=== PATIENT | female | born 1950 | race Two or more races ===

== ENCOUNTER 2024-11-11 20:07 | Inpatient (IN) | payer MEDICARE ==
[2024-11-11] MEDS ORDERED: Sodium Chloride 0.9% 2.5 ML Syringe FLUSH PRN (20:15)
[2024-11-11] MEDS ORDERED: Sodium Chloride 0.9% 10 ML Syringe FLUSH PRN (20:15)
[2024-11-11 20:28] LABS: BASOPHILS ABSOLUTE AUTO 0.05 K/uL (0.00-0.20); BASOPHILS PERCENT AUTO 0.4 % (0.0-1.0); EOSINOPHILS ABSOLUTE AUTO 0.02 K/uL (0.00-0.45); EOSINOPHILS PERCENT AUTO 0.2 % (0.0-6.0); IMMATURE GRAN ABSOLUTE AUTO 0.02 K/uL (0.00-0.05); IMMATURE GRAN PERCENT AUTO 0.2 % (0.0-0.4); LYMPHOCYTES ABSOLUTE AUTO 1.65 K/uL (1.00-4.80); LYMPHOCYTES PERCENT AUTO 13.5 % (24.0-44.0); MEAN PLATELET VOLUME 10.0 fL (9.4-12.3); MONOCYTES ABSOLUTE AUTO 0.99 K/uL (0.00-0.80); MONOCYTES PERCENT AUTO 8.1 % (0.0-8.0); NEUTROPHILS ABSOLUTE AUTO 9.53 K/uL (1.80-7.70); NEUTROPHILS PERCENT AUTO 77.6 % (41.0-71.0); NRBC ABSOLUTE 0.00 K/uL (0.00-0.02); NRBC PERCENT 0.0 /100WBC (0.0-0.2); PLATELET COUNT,PLT 142 K/uL (150-400); RED BLOOD CELL COUNT 4.57 M/uL (4.10-5.30); WHITE BLOOD CELL COUNT,WBC 12.26 K/uL (3.9-11.3)
[2024-11-11] MEDS: cefTRIAXone 1 GM in Water For Injection, Sterile 10 ML IVPUSH ONE (20:37)
[2024-11-11] MEDS: VANCOmycin 1.75 GM/350 ML 1.75 GM in Premix Bag 1 BAG IV ONE (20:37)
[2024-11-11 20:58] LABS: INR 1.04 (0.86-1.11); LACTIC ACID 1.4 mmol/L (0.4-2.0); PTT,PARTIAL THROMBOPLSTIN TIME 25.6 SEC (23.9-30.7)
[2024-11-11 21:02] LABS: APPEARANCE,URINE CLEAR; GLUCOSE,URINE NEGATIVE (NEGATIVE); OCCULT BLOOD,URINE SMALL (NEGATIVE)
[2024-11-11 21:04] LABS: A/G RATIO 0.9 (0.9-1.6); ALANINE AMINOTRANSFERASE,ALT 24 IU/L (14-63); ASPARTATE AMNIOTRANSFERASE,AST 31 IU/L (15-37); BILIRUBIN TOTAL 0.7 mg/dL (0.2-1.0); BLOOD UREA NITROGEN,BUN 19 mg/dL (7.0-18.0); CARBON DIOXIDE,CO2 30.0 mmol/L (21.0-32.0); CHLORIDE,CL 98 mmol/L (98-107); CREATININE 1.2 mg/dL (0.6-1.0); GLUCOSE RANDOM 140 mg/dL (74-106); POTASSIUM,K 5.0 mmol/L (3.5-5.1); PROTEIN TOTAL,TP 7.4 g/dL (6.4-8.2); SODIUM,NA 136 mmol/L (136-145)
[2024-11-11 21:10] LABS: ESTIMATED GFR 47 mL/min (>60)
[2024-11-11 21:11] LABS: EPITHELIAL CELLS,URINE OCCASIONAL (NONE-FEW)
[2024-11-12 05:44] LABS: BASOPHILS ABSOLUTE AUTO 0.03 K/uL (0.00-0.20); BASOPHILS PERCENT AUTO 0.3 % (0.0-1.0); EOSINOPHILS ABSOLUTE AUTO 0.02 K/uL (0.00-0.45); EOSINOPHILS PERCENT AUTO 0.2 % (0.0-6.0); IMMATURE GRAN ABSOLUTE AUTO 0.03 K/uL (0.00-0.05); IMMATURE GRAN PERCENT AUTO 0.3 % (0.0-0.4); LYMPHOCYTES ABSOLUTE AUTO 1.94 K/uL (1.00-4.80); LYMPHOCYTES PERCENT AUTO 18.5 % (24.0-44.0); MEAN PLATELET VOLUME 10.2 fL (9.4-12.3); MONOCYTES ABSOLUTE AUTO 0.91 K/uL (0.00-0.80); MONOCYTES PERCENT AUTO 8.7 % (0.0-8.0); NEUTROPHILS ABSOLUTE AUTO 7.54 K/uL (1.80-7.70); NEUTROPHILS PERCENT AUTO 72.0 % (41.0-71.0); NRBC ABSOLUTE 0.00 K/uL (0.00-0.02); NRBC PERCENT 0.0 /100WBC (0.0-0.2); PLATELET COUNT,PLT 124 K/uL (150-400); RED BLOOD CELL COUNT 4.41 M/uL (4.10-5.30); WHITE BLOOD CELL COUNT,WBC 10.47 K/uL (3.9-11.3)
[2024-11-12 06:09] LABS: BLOOD UREA NITROGEN,BUN 17.0 mg/dL (7.0-18.0); CARBON DIOXIDE,CO2 28.0 mmol/L (21.0-32.0); CHLORIDE,CL 105.0 mmol/L (98-107); CREATININE 1.0 mg/dL (0.6-1.0); EST CRCL DRUG DOSING (CG) 39.59 mL/min; GLUCOSE RANDOM 141.0 mg/dL (74-106); POTASSIUM,K 4.9 mmol/L (3.5-5.1); SODIUM,NA 140.0 mmol/L (136-145)
[2024-11-12 06:15] LABS: ESTIMATED GFR 58.0 mL/min (>60)
[2024-11-12] MEDS ORDERED: 50% Dextrose in Water 50 ML Syringe IVPUSH PRN (06:51)
[2024-11-12] MEDS: Insulin Glargine,Human Rec. Analog 100 Units/ML 3 ML Pen SUBCUT SCH (08:36)
[2024-11-12] MEDS ORDERED: Sodium Chloride 0.9% 10 ML Syringe FLUSH PRN (13:39)
[2024-11-12] MEDS ORDERED: Sodium Chloride 0.9% 2.5 ML Syringe FLUSH PRN (13:39)
[2024-11-12] MEDS: Ondansetron 4 MG/2 ML SDV IVPUSH PRN (17:05)
[2024-11-12] MEDS: cefTRIAXone 1 GM in Water For Injection, Sterile 10 ML IVPUSH SCH (21:06)
[2024-11-13 05:07] LABS: BORDETELLA PARAPERT IS1001 Not Detected (Not Detected)
[2024-11-13 06:10] LABS: BASOPHILS ABSOLUTE AUTO 0.03 K/uL (0.00-0.20); BASOPHILS PERCENT AUTO 0.3 % (0.0-1.0); EOSINOPHILS ABSOLUTE AUTO 0.05 K/uL (0.00-0.45); EOSINOPHILS PERCENT AUTO 0.5 % (0.0-6.0); IMMATURE GRAN ABSOLUTE AUTO 0.03 K/uL (0.00-0.05); IMMATURE GRAN PERCENT AUTO 0.3 % (0.0-0.4); LYMPHOCYTES ABSOLUTE AUTO 2.10 K/uL (1.00-4.80); LYMPHOCYTES PERCENT AUTO 23.1 % (24.0-44.0); MEAN PLATELET VOLUME 10.0 fL (9.4-12.3); MONOCYTES ABSOLUTE AUTO 1.08 K/uL (0.00-0.80); MONOCYTES PERCENT AUTO 11.9 % (0.0-8.0); NEUTROPHILS ABSOLUTE AUTO 5.82 K/uL (1.80-7.70); NEUTROPHILS PERCENT AUTO 63.9 % (41.0-71.0); NRBC ABSOLUTE 0.00 K/uL (0.00-0.02); NRBC PERCENT 0.0 /100WBC (0.0-0.2); PLATELET COUNT,PLT 123 K/uL (150-400); RED BLOOD CELL COUNT 3.92 M/uL (4.10-5.30); WHITE BLOOD CELL COUNT,WBC 9.11 K/uL (3.9-11.3)
[2024-11-13 06:28] LABS: BLOOD UREA NITROGEN,BUN 17.0 mg/dL (7.0-18.0); CARBON DIOXIDE,CO2 30.7 mmol/L (21.0-32.0); CHLORIDE,CL 104.0 mmol/L (98-107); CREATININE 1.0 mg/dL (0.6-1.0); EST CRCL DRUG DOSING (CG) 39.59 mL/min; GLUCOSE RANDOM 91.0 mg/dL (74-106); POTASSIUM,K 4.5 mmol/L (3.5-5.1); SODIUM,NA 140.0 mmol/L (136-145)
[2024-11-13 06:38] LABS: ESTIMATED GFR 58.0 mL/min (>60)
[2024-11-14 08:33] LABS: BASOPHILS ABSOLUTE AUTO 0.04 K/uL (0.00-0.20); BASOPHILS PERCENT AUTO 0.5 % (0.0-1.0); EOSINOPHILS ABSOLUTE AUTO 0.12 K/uL (0.00-0.45); EOSINOPHILS PERCENT AUTO 1.5 % (0.0-6.0); IMMATURE GRAN ABSOLUTE AUTO 0.02 K/uL (0.00-0.05); IMMATURE GRAN PERCENT AUTO 0.3 % (0.0-0.4); LYMPHOCYTES ABSOLUTE AUTO 2.52 K/uL (1.00-4.80); LYMPHOCYTES PERCENT AUTO 31.8 % (24.0-44.0); MEAN PLATELET VOLUME 9.9 fL (9.4-12.3); MONOCYTES ABSOLUTE AUTO 0.91 K/uL (0.00-0.80); MONOCYTES PERCENT AUTO 11.5 % (0.0-8.0); NEUTROPHILS ABSOLUTE AUTO 4.31 K/uL (1.80-7.70); NEUTROPHILS PERCENT AUTO 54.4 % (41.0-71.0); NRBC ABSOLUTE 0.00 K/uL (0.00-0.02); NRBC PERCENT 0.0 /100WBC (0.0-0.2); PLATELET COUNT,PLT 112 K/uL (150-400); RED BLOOD CELL COUNT 3.93 M/uL (4.10-5.30); WHITE BLOOD CELL COUNT,WBC 7.92 K/uL (3.9-11.3)
[2024-11-14 08:55] LABS: BLOOD UREA NITROGEN,BUN 14.0 mg/dL (7.0-18.0); CARBON DIOXIDE,CO2 33.7 mmol/L (21.0-32.0); CHLORIDE,CL 103.0 mmol/L (98-107); CREATININE 1.0 mg/dL (0.6-1.0); EST CRCL DRUG DOSING (CG) 39.59 mL/min; GLUCOSE RANDOM 146.0 mg/dL (74-106); POTASSIUM,K 4.6 mmol/L (3.5-5.1); SODIUM,NA 142.0 mmol/L (136-145)
[2024-11-14 09:02] LABS: ESTIMATED GFR 58.0 mL/min (>60)
[2024-11-15] MEDS: Heparin Sodium 5,000 Units/ML Vial SUBCUT SCH (14:35)
[2024-11-16 05:58] LABS: MEAN PLATELET VOLUME 10.0 fL (9.4-12.3); NRBC ABSOLUTE 0.00 K/uL (0.00-0.02); NRBC PERCENT 0.0 /100WBC (0.0-0.2); PLATELET COUNT,PLT 148 K/uL (150-400); RED BLOOD CELL COUNT 3.95 M/uL (4.10-5.30); WHITE BLOOD CELL COUNT,WBC 7.64 K/uL (3.9-11.3)
[2024-11-16 06:22] LABS: BLOOD UREA NITROGEN,BUN 12.0 mg/dL (7.0-18.0); CARBON DIOXIDE,CO2 38.9 mmol/L (21.0-32.0); CHLORIDE,CL 101.0 mmol/L (98-107); CREATININE 0.9 mg/dL (0.6-1.0); EST CRCL DRUG DOSING (CG) 43.99 mL/min; GLUCOSE RANDOM 109.0 mg/dL (74-106); POTASSIUM,K 4.6 mmol/L (3.5-5.1); SODIUM,NA 143.0 mmol/L (136-145)
[2024-11-16 06:41] LABS: ESTIMATED GFR 66.0 mL/min (>60)
[2024-11-16 06:48] LABS: EOSINOPHILS ABSOLUTE MAN 0.23 K/uL (0.00-0.45); EOSINOPHILS PERCENT MAN 3 % (0-6); LYMPHOCYTES ABSOLUTE MAN 2.37 K/uL (1.00-4.80); LYMPHOCYTES PERCENT MAN 31 % (24-44); MONOCYTES ABSOLUTE MAN 0.61 K/uL (0.00-0.80); MONOCYTES PERCENT MAN 8 % (0-8); SEG NEUTROPHILS ABSOLUTE MAN 4.43 K/uL (1.80-7.70); SEG NEUTROPHILS PERCENT MAN 58 % (41-71)
[2024-11-16] MEDS: Insulin Glargine,Human Rec. Analog 100 Units/ML 3 ML Pen SUBCUT SCH (09:19)
[2024-11-17 08:26] LABS: BASOPHILS ABSOLUTE AUTO 0.05 K/uL (0.00-0.20); BASOPHILS PERCENT AUTO 0.6 % (0.0-1.0); EOSINOPHILS ABSOLUTE AUTO 0.22 K/uL (0.00-0.45); EOSINOPHILS PERCENT AUTO 2.8 % (0.0-6.0); IMMATURE GRAN ABSOLUTE AUTO 0.03 K/uL (0.00-0.05); IMMATURE GRAN PERCENT AUTO 0.4 % (0.0-0.4); LYMPHOCYTES ABSOLUTE AUTO 2.46 K/uL (1.00-4.80); LYMPHOCYTES PERCENT AUTO 31.7 % (24.0-44.0); MEAN PLATELET VOLUME 9.6 fL (9.4-12.3); MONOCYTES ABSOLUTE AUTO 0.51 K/uL (0.00-0.80); MONOCYTES PERCENT AUTO 6.6 % (0.0-8.0); NEUTROPHILS ABSOLUTE AUTO 4.48 K/uL (1.80-7.70); NEUTROPHILS PERCENT AUTO 57.9 % (41.0-71.0); NRBC ABSOLUTE 0.00 K/uL (0.00-0.02); NRBC PERCENT 0.0 /100WBC (0.0-0.2); PLATELET COUNT,PLT 168 K/uL (150-400); RED BLOOD CELL COUNT 4.33 M/uL (4.10-5.30); WHITE BLOOD CELL COUNT,WBC 7.75 K/uL (3.9-11.3)
[2024-11-17 08:44] LABS: BLOOD UREA NITROGEN,BUN 15.0 mg/dL (7.0-18.0); CARBON DIOXIDE,CO2 36.2 mmol/L (21.0-32.0); CHLORIDE,CL 100.0 mmol/L (98-107); CREATININE 0.9 mg/dL (0.6-1.0); EST CRCL DRUG DOSING (CG) 43.99 mL/min; GLUCOSE RANDOM 141.0 mg/dL (74-106); POTASSIUM,K 4.7 mmol/L (3.5-5.1); SODIUM,NA 141.0 mmol/L (136-145)
[2024-11-17 08:47] LABS: ESTIMATED GFR 66.0 mL/min (>60)
== END 2024-11-17 13:38 | disposition home or self-care (01) | DRG 871 ==
LOC: MW.ED 20:07 → MW.MS 21:32 → OBSVTOIN 11-12 11:10
PROVIDERS: ADMIT Internal Medicine; ATTEND Internal Medicine
DX: A41.9 Sepsis, unspecified organism (principal); J18.9 Pneumonia, unspecified organism; J96.01 Acute respiratory failure with hypoxia; J44.0 Chronic obstructive pulmonary disease with (acute) lower respiratory infection; Z66 Do not resuscitate; R65.20 Severe sepsis without septic shock; E03.9 Hypothyroidism, unspecified; E86.0 Dehydration; E11.9 Type 2 diabetes mellitus without complications; E78.00 Pure hypercholesterolemia, unspecified; I10 Essential (primary) hypertension; R41.82 Altered mental status, unspecified; E66.9 Obesity, unspecified; Z68.32 Body mass index [BMI] 32.0-32.9, adult; Z90.49 Acquired absence of other specified parts of digestive tract; Z98.890 Other specified postprocedural states; Z79.899 Other long term (current) drug therapy; Z98.49 Cataract extraction status, unspecified eye; Z86.73 Personal history of transient ischemic attack (TIA), and cerebral infarction without residual deficits; Z79.4 Long term (current) use of insulin; Z86.718 Personal history of other venous thrombosis and embolism; Z87.891 Personal history of nicotine dependence
CPT/HCPCS: 36415; 70450; 70450-26; 71045; 71045-26; 72125; 72125-26; 80048; 80053; 81001; 82947; 83036; 83605; 83735; 84484; 85025; 85610; 85730; 87040; 87426-QW; 87486; 87581; 87633; 93005; 96365; 96366; 96367; 96375; 97161-GP; 99223; 99232; 99233; 99238; 99284; 99285-25; A9270-GY; G0378; J0456; J0696; J1644; J1815-GY; J2405; J3375; J7030; J7050